=== PATIENT | female | born 1970 | race Caucasian/White ===

== ENCOUNTER 2022-07-17 00:25 | Emergency (ER) | payer BC, OTHER ==
[2022-07-17 00:33] VITALS: RESP 18; TEMP 98
[2022-07-17] MEDS ORDERED: MORPHINE SULFATE 4 MG/ML SYRINGE IV STA (00:47)
[2022-07-17] MEDS ORDERED: KETOROLAC 15 MG/ML 1 ML VIAL IVP STA (00:47)
[2022-07-17] MEDS ORDERED: ONDANSETRON 4 MG/2 ML VIAL IVP STA (00:47)
[2022-07-17] MEDS ORDERED: SODIUM CHLORIDE 0.9% 1,000 ML IV STA (00:47)
--- NOTE | 2022-07-17 00:52 | ED ---
Abdominal Pain HPI - General Chief Complaint: Abdominal Pain Stated Complaint: Abd Pain Time Seen by Provider: 07/17/22 00:40 Source: patient, RN notes reviewed Mode of arrival: ambulatory Limitations: no limitations - History of Present Illness Initial Comments: This is a pleasant 51-year-old female presents with sudden onset left flank pain which started about 2 hours ago. Patient describing a sharp, waxing and waning type pain mostly in the left pelvic area. No hematuria. No fever or chills. Patient has no back pain currently. Patient did have one episode of vomiting prior to arrival. No headache, no fever or chills, no changes in vision or hearing, no sore throat or difficulty with speech, no neck pain, no chest pain or shortness of breath, no changes in urination or bowel movements, no numbness or tingling, no extremity pain, no skin rashes or lesions. Past medical, surgical, social, and family history reviewed. MD Complaint: flank pain - Related Data Previous Rx's Medication Instructions Recorded Naproxen [Naprosyn] 375 mg PO Q12HR PRN #20 tablet 07/17/22 Allergies Allergy/AdvReac Type Severity Reaction Status Date / Time No Known Allergies Allergy Verified 07/17/22 00:33 Review of Systems ROS Statement: Those systems with pertinent positive or pertinent negative responses have been documented in the HPI. ROS Other: All systems not noted in ROS Statement are negative. Past Medical History Past Medical History: No Reported History History of Any Multi-Drug Resistant Organisms: None Reported Past Surgical History: No Surgical Hx Reported Past Psychological History: No Psychological Hx Reported Smoking Status: Vaper Past Alcohol Use History: Rare Past Drug Use History: None Reported General Exam Limitations: no limitations General appearance: alert, in distress Head exam: Present: atraumatic, normocephalic, normal inspection Eye exam: Present: normal appearance, PERRL, EOMI. Absent: scleral icterus, conjunctival injection, periorbital swelling ENT exam: Present: normal exam, mucous membranes moist Neck exam: Present: normal inspection. Absent: tenderness, meningismus, l ymphadenopathy Respiratory exam: Present: normal lung sounds bilaterally. Absent: respiratory distress, wheezes, rales, rhonchi, stridor Cardiovascular Exam: Present: regular rate, normal rhythm, normal heart sounds. Absent: systolic murmur, diastolic murmur, rubs, gallop, clicks GI/Abdominal exam: Present: soft, normal bowel sounds. Absent: distended, tenderness, guarding, rebound, rigid Extremities exam: Present: normal inspection, full ROM, normal capillary refill. Absent: tenderness, pedal edema, joint swelling, calf tenderness Back exam: Present: normal inspection, full ROM, CVA tenderness (L) Neurological exam: Present: alert, oriented X3, CN II-XII intact Psychiatric exam: Present: normal affect, normal mood Skin exam: Present: warm, dry, intact, normal color. Absent: rash Course Vital Signs 07/17/22 00:30 Temperature 98 F Pulse Rate 81 Respiratory 18 Rate Blood Pressure 139/68 O2 Sat by Pulse 98 Oximetry - Reevaluation(s) Reevaluation #1: 07/17/22 03:06 Patient reevaluated prior to discharge and is much improved after treatment. Patient states that she feels "1000 times better." Patient feels well enough to be discharged. Discussed all findings with the patient. Medical Decision Making - Medical Decision Making Differential diagnosis: Ureterolithiasis, less likelydiverticulitis, urinary tract infection, aortic pathology very unlikely. Patient is hemodynamically stable. Patient symptomology most of its renal colic. General laboratory workup to include noncontrast computed tomography scan. Patient had no diagnostic evidence to explain her pain. Patient present with sudden onset of left pelvic pain. Does not appear to be consistent with vascular etiology. Workup was essentially negative with unremarkable CBC, CMP, urinalysis, and computed tomography scan. This raises suspicion of non-ra diopaque renal stone, possible renal colic with passed stone, possible ovarian pathology. Patient postmenopausal. Does not appear to be consistent with infectious etiology. The case was discussed in detail with ED attending physician. Presentation, findings, treatment plan discussed in detail. Supervising physician Dr. Bo - Lab Data Result diagrams: 07/17/22 00:53 07/17/22 00:53 Lab Results 07/17/22 07/17/22 07/17/22 Range/Units 00:53 00:53 02:01 WBC 8.2 (3.8-10.6) k/uL RBC 4.11 (3.80-5.40) m/uL Hgb 12.5 (11.4-16.0) gm/dL Hct 35.9 (34.0-46.0) % MCV 87.2 (80.0-100.0) fL MCH 30.5 (25.0-35.0) pg MCHC 34.9 (31.0-37.0) g/dL RDW 12.9 (11.5-15.5) % Plt Count 206 (150-450) k/uL MPV 8.0 Neutrophils % 63 % Lymphocytes % 27 % Monocytes % 6 % Eosinophils % 1 % Basophils % 0 % Neutrophils # 5.1 (1.3-7.7) k/uL Lymphocytes # 2.2 (1.0-4.8) k/uL Monocytes # 0.5 (0-1.0) k/uL Eosinophils # 0.1 (0-0.7) k/uL Basophils # 0.0 (0-0.2) k/uL Sodium 138 (137-145) mmol/L Potassium 4.3 (3.5-5.1) mmol/L Chloride 106 (98-107) mmol/L Carbon Dioxide 27 (22-30) mmol/L Anion Gap 5 mmol/L BUN 20 H (7-17) mg/dL Creatinine 0.62 (0.52-1.04) mg/dL Est GFR (CKD-EPI)AfAm >90 (>60 ml/min/1.73 sqM) Est GFR (CKD-EPI)NonAf >90 (>60 ml/min/1.73 sqM) Glucose 147 H (74-99) mg/dL Calcium 9.1 (8.4-10.2) mg/dL Total Bilirubin 0.4 (0.2-1.3) mg/dL AST 27 (14-36) U/L ALT 22 (4-34) U/L Alkaline Phosphatase 74 (38-126) U/L Total Protein 7.8 (6.3-8.2) g/dL Albumin 4.5 (3.5-5.0) g/dL Urine Color Yellow Urine Appearance Clear (Clear) Urine pH 5.5 (5.0-8.0) Ur Specific [place] 1.025 (1.001-1.035) Urine Protein Negative (Negative) Urine Glucose (UA) Negative (Negative) Urine Ketones Negative (Negative) Urine Blood Negative (Negative) Urine Nitrite Negative (Negative) Urine Bilirubin Negative (Negative) Urine Urobilinogen <2.0 (<2.0) mg/dL Ur Leukocyte Esterase Negative (Negative) - Radiology Data Radiology results: report reviewed, image reviewed My independent interpretation of the noncontrast computed tomography scan of abdomen and pelvis reveals no evidence of acute pathology as read by me. I did review the radiology report. There is no evidence of renal stone or obstruction. Radiologist does make some mention of minimalist fat stranding around the small bowel the left paracolic region but specifically says no evidence of significant diverticular disease. Disposition Clinical Impression: Pelvic pain Disposition: HOME SELF-CARE Condition: Good Instructions (If sedation given, give patient instructions): Pelvic Pain in Women (ED) Additional Instructions: Follow-up with your regular physician as directed. Return to the ER immediately if any symptoms worsen, new symptoms arise, or any other problems develop. Prescriptions: Naproxen [Naprosyn] 375 mg PO Q12HR PRN #20 tablet PRN Reason: Pain Is patient prescribed a controlled substance at d/c from ED?: No Referrals: Geovanny Redmond MD [Primary Care Provider] - 1-2 days Time of Disposition: 03:01
[2022-07-17 01:21] LABS: Basophils % (A) 0 %; Eosinophils # (A) 0.1 k/uL (0-0.7); Eosinophils % (A) 1 %; HCT 35.9 % (34.0-46.0); HGB 12.5 gm/dL (11.4-16.0); Lymphocytes # (A) 2.2 k/uL (1.0-4.8); Lymphocytes % (A) 27 %; MCH 30.5 pg (25.0-35.0); MCHC 34.9 g/dL (31.0-37.0); MCV 87.2 fL (80.0-100.0); Monocytes # (A) 0.5 k/uL (0-1.0); Monocytes % (A) 6 %; Neutrophils # (A) 5.1 k/uL (1.3-7.7); Neutrophils % (A) 63 %; Platelet Count 206 k/uL (150-450); RBC 4.11 m/uL (3.80-5.40); RDW 12.9 % (11.5-15.5); WBC 8.2 k/uL (3.8-10.6)
[2022-07-17 01:32] LABS: ALT 22 U/L (4-34); AST 27 U/L (14-36); African American GFR (CKD) >90 (>60 ml/min/1.73 sqM); Albumin 4.5 g/dL (3.5-5.0); Alkaline Phosphatase 74 U/L (38-126); Anion Gap 5 mmol/L; Blood Urea Nitrogen 20 mg/dL (7-17); Calcium 9.1 mg/dL (8.4-10.2); Carbon Dioxide 27 mmol/L (22-30); Chloride 106 mmol/L (98-107); Glucose 147 mg/dL (74-99); Non-African American GFR(CKD) >90 (>60 ml/min/1.73 sqM); Potassium 4.3 mmol/L (3.5-5.1); Sodium 138 mmol/L (137-145); Total Bilirubin 0.4 mg/dL (0.2-1.3); Total Protein 7.8 g/dL (6.3-8.2)
--- NOTE | 2022-07-17 01:57 | CT ---
EXAMINATION TYPE: CT abdomen pelvis wo con DATE OF EXAM: 07/17/2022 COMPARISON: 02/09/2013 HISTORY: Left flank pain CT DLP: 1119.4 mGycm Automated exposure control for dose reduction was used. Images obtained from the diaphragm to the floor the pelvis with no contrast. The lung bases are clear. No pleural effusion. Heart size is normal. No pericardial effusion. Liver spleen and stomach pancreas appear intact. There are multiple gallstones. The bile ducts are no t dilated. No pancreatic mass. There is no adrenal mass. Kidneys have normal size. No hydronephrosis. Ureters are not dilated. No re troperitoneal adenopathy. Appendix is posterior and appears normal. There is no mesenteric edema. No evidence of ascites. No free air. There are some mildly distended loops of fluid-filled small bowel. Small bowel measures up to 2.8 cm. The bladder distends smoothly. No inguinal hernia. No free fluid in the pelvis. No evidence of a pelv ic mass. There is some minimal fat stranding around the small bowel in the left paracolic region. No evidence of a significant diverticular disease. The lumbar vertebrae have normal alignment. No compression fracture. There is narrowing at the L4-5 d isc space with spurring. No focal bone destruction. The bony pelvis is intact. The hip joints are int act. Sacroiliac joints are intact. IMPRESSION: No evidence of renal stone or obstruction. Multiple fluid-filled distended small bowel loops could relate to small bowel ileus. Partial safe and vault mechanic al obstruction not excluded. No transition point seen. Minimal fat stranding in the left lower quadrant adjacent to some small bowel that could be an inflam matory reaction. The dilated small bowel appears new compared to the old exam.
[2022-07-17 02:21] LABS: Appearance,Urine Clear (Clear); Bilirubin,Urine Negative (Negative); Blood,Urine Negative (Negative); Color,Urine Yellow; Glucose,Urine (UA) Negative (Negative); Ketones,Urine Negative (Negative); Leukocyte Esterase,Urine Negative (Negative); Nitrite,Urine Negative (Negative); PH, Urine 5.5 (5.0-8.0); Protein,Urine Negative (Negative); Specific Gravity,Urine 1.025 (1.001-1.035); Urobilinogen,Urine <2.0 mg/dL (<2.0)
[2022-07-17] MEDS ORDERED: ACET/COD 300 MG/30 MG STARTER PACK 6 TAB BTL PO STA (03:00)
[2022-07-17] MEDS ORDERED: ONDANSETRON 4 MG ODT STARTER PACK 2 TAB BTL PO STA (03:00)
[2022-07-17 03:13] VITALS: BP 124/76; PULSE 72
== END 2022-07-17 03:13 | disposition home or self-care (01) ==
LOC: EC 00:25
DX: R10.2 Pelvic and perineal pain (principal); F17.290 Nicotine dependence, other tobacco product, uncomplicated
CPT/HCPCS: 36415; 80053; 85025; 81003; 74176; 99284; 96374; 96361 ×2; J1885; S0119

== ENCOUNTER 2022-07-17 08:41 | Inpatient (IN) | payer BC, OTHER ==
[2022-07-17] MEDS ORDERED: MORPHINE SULFATE 2 MG/ML SYRINGE IVP STA (09:42)
[2022-07-17] MEDS ORDERED: KETOROLAC 15 MG/ML 1 ML VIAL IVP STA (09:42)
[2022-07-17] MEDS ORDERED: SODIUM CHLORIDE 0.9% 1,000 ML IV STA (09:56)
[2022-07-17] MEDS ORDERED: ONDANSETRON 4 MG/2 ML VIAL IVP STA (09:57)
[2022-07-17] MEDS ORDERED: ACETAMINOPHEN TAB 325 MG TAB PO PRN (09:58)
[2022-07-17] MEDS ORDERED: IBUPROFEN 400 MG TAB PO PRN (09:58)
[2022-07-17] MEDS ORDERED: NALOXONE 0.4 MG/ML 1 ML VIAL IV PRN (09:58)
--- NOTE | 2022-07-17 09:58 | ED ---
Abdominal Pain HPI - General Chief Complaint: Abdominal Pain Stated Complaint: abd pain-revisit Time Seen by Provider: 07/17/22 09:38 Source: patient, family, RN notes reviewed Mode of arrival: ambulatory Limitations: no limitations - History of Present Illness Initial Comments: This is a 51-year-old female who presents to the emergency department for ab dominal pain. Patient was evaluated here earlier today for similar symptoms and found to have a small bowel ileus. She was discharged after having significant improvement in symptoms following Zofran and Toradol. States that after she got home, she tried taking the Zofran and naproxen with no relief. She subsequently returned to the emergency department for further management. States that the pain has been moving in her abdomen since yesterday. It was initially in the lower abdomen and has now started to move to the mid abdomen around her bellybutton. Denies any fevers, chills, sore throat, cough, dyspnea, chest pain, palpitations, diarrhea, back pain, or headaches. MD Complaint: abdominal pain Location: periumbilical Associated Symptoms: nausea, vomiting - Related Data Previous Rx's Medication Instructions Recorded Naproxen [Naprosyn] 375 mg PO Q12HR PRN #20 tablet 07/17/22 Allergies Allergy/AdvReac Type Severity Reaction Status Date / Time No Known Allergies Allergy Verified 07/17/22 00:33 Review of Systems ROS Statement: Those systems with pertinent positive or pertinent negative responses have been documented in the HPI. ROS Other: All systems not noted in ROS Statement are negative. Past Medical History Past Medical History: No Reported History History of Any Multi-Drug Resistant Organisms: None Reported Past Surgical History: No Surgical Hx Reported Past Psychological History: No Psychological Hx Reported Smoking Status: Vaper Past Alcohol Use History: Rare Past Drug Use History: None Reported General Exam Limitations: no limitations General appearance: alert, in distress Head exam: Present: atraumatic, normocephalic, normal inspection Respiratory exam: Present: normal lung sounds bilaterally. Absent: respiratory distress, wheezes, rales, rhonchi, stridor Cardiovascular Exam: Present: regular rate, normal rhythm, normal heart sounds. Absent: systolic murmur, diastolic murmur, rubs, gallop, clicks GI/Abdominal exam: Present: soft, tenderness (Diffuse), hypoactive bowel sounds. Absent: distended Neurological exam: Present: alert, oriented X3, CN II-XII intact Psychiatric exam: Present: normal affect, normal mood Skin exam: Present: warm, dry, intact, normal color. Absent: rash Course Vital Signs 07/17/22 08:46 Temperature 97.8 F Pulse Rate 84 Respiratory 20 Rate Blood Pressure 149/83 O2 Sat by Pulse 99 Oximetry Medical Decision Making - Medical Decision Making This is a 51-year-old female who presents to the emergency department with abdominal pain. Lab work from earlier today was reviewed and found to be nonactionable. Will not repeat lab work at this time, as it was just obtained several hours ago. I received a phone call from Dr. Redmond's office while in the room with the patient, and the office requested the patient be admitted for the small bowel ileus. This was discussed with the patient, who is agreeable to admission. Patient was given IV fluids, Zofran, and Toradol. She request to avoid any stronger pain medication at this time. Patient admitted to medicine for the small bowel ileus and will be kept NPO for the meantime. Return precautions reviewed in depth, the patient is instructed to return to the emergency department with any new, worsening, or concerning symptoms. Patient verbalized understanding. This case was discussed in detail with the attending ED physician. Presentation, findings, and treatment plan discussed in detail as well. - Radiology Data Radiology results: report reviewed, image reviewed Disposition Clinical Impression: Paralytic ileus of small intestine Disposition: ADMITTED IP TO THIS [facility] Referrals: Geovanny Redmond MD [Primary Care Provider] - 1-2 days
[2022-07-17] MEDS ORDERED: MORPHINE SULFATE 2 MG/ML SYRINGE IVP PRN (10:00)
[2022-07-17] MEDS: PANTOPRAZOLE 40 MG/10 ML VIAL IV SCH (10:18)
[2022-07-17] MEDS: KETOROLAC 15 MG/ML 1 ML VIAL IVP PRN (17:37)
[2022-07-18] MEDS ORDERED: SODIUM CHLORIDE 0.9% 1,000 ML IV SCH (00:15)
[2022-07-18 06:47] LABS: Basophils % (A) 0 %; Eosinophils # (A) 0.1 k/uL (0-0.7); Eosinophils % (A) 1 %; HCT 36.5 % (34.0-46.0); HGB 12.2 gm/dL (11.4-16.0); Lymphocytes # (A) 1.7 k/uL (1.0-4.8); Lymphocytes % (A) 19 %; MCH 29.8 pg (25.0-35.0); MCHC 33.5 g/dL (31.0-37.0); MCV 88.9 fL (80.0-100.0); Mean Platelet Volume 8.4; Monocytes # (A) 0.4 k/uL (0-1.0); Monocytes % (A) 4 %; Neutrophils # (A) 6.8 k/uL (1.3-7.7); Neutrophils % (A) 75 %; Platelet Count 206 k/uL (150-450); RBC 4.11 m/uL (3.80-5.40); RDW 13.4 % (11.5-15.5); WBC 9.1 k/uL (3.8-10.6)
[2022-07-18 07:12] LABS: ALT 17 U/L (4-34); AST 21 U/L (14-36); African American GFR (CKD) >90 (>60 ml/min/1.73 sqM); Albumin 3.6 g/dL (3.5-5.0); Albumin/Globulin Ratio 1.3; Alkaline Phosphatase 64 U/L (38-126); Anion Gap 4 mmol/L; Blood Urea Nitrogen 17 mg/dL (7-17); Calcium 8.4 mg/dL (8.4-10.2); Carbon Dioxide 26 mmol/L (22-30); Chloride 108 mmol/L (98-107); Globulin 2.8 g/dL; Glucose 106 mg/dL (74-99); Magnesium 1.8 mg/dL (1.6-2.3); Non-African American GFR(CKD) >90 (>60 ml/min/1.73 sqM); Potassium 4.1 mmol/L (3.5-5.1); Sodium 138 mmol/L (137-145); Total Bilirubin 0.8 mg/dL (0.2-1.3); Total Protein 6.4 g/dL (6.3-8.2)
[2022-07-18] MEDS: PANTOPRAZOLE 40 MG/10 ML VIAL IV SCH (08:58)
[2022-07-18] MEDS: SODIUM CHLORIDE 0.9% 1,000 ML IV SCH ×3 (09:46→21:34)
[2022-07-18] MEDS: ONDANSETRON 4 MG/2 ML VIAL IVP PRN ×2 (12:21→18:53)
[2022-07-18] MEDS: KETOROLAC 15 MG/ML 1 ML VIAL IVP PRN ×2 (13:27→20:58)
--- NOTE | 2022-07-18 13:35 | HP ---
HISTORY AND PHYSICAL HISTORY OF PRESENT ILLNESS: This 51-year-old white female came to the hospital with bowel obstruction. She was here 2 days in a row. She had progressive vomiting last night. CAT scan showed possible bowel obstruction versus ileus. We are going to try on clear liquid diet tonight and see how she does, see if she can tolerate it and advance diet as tolerated. Possibly viral induced, although she has not been sick. She has noticed a great increase in her diet and gained 10 pounds recently after following her diet for many months. She has no history of abdominal surgeries. REVIEW OF SYSTEMS: A 14-point review of systems otherwise is negative except for progressive vomiting and dehydration. PAST MEDICAL HISTORY: Negative. PHYSICAL EXAMINATION: VITAL SIGNS: BMI is over 40. CARDIOVASCULAR: S1, S2. LUNGS: Clear. GI: Soft, nontender. EXTREMITIES: No edema. PSYCH: Fair mood and affect. Cranial nerves are intact on psych eval. ASSESSMENT AND PLAN: Possible bowel obstruction versus ileus, dehydration, prerenal azotemia. Rehydrate her, advance diet. If she does not tolerate this, we will re-CAT scan her belly, get a surgical consult. Prognosis guarded. MMODL / IJN: [id number] /
--- NOTE | 2022-07-18 14:35 | PN ---
PROGRESS NOTE SUBJECTIVE: A 51-year-old white female came with ileus versus small bowel obstruction with progressive nausea and vomiting. We gave her fluids overnight and 100 mL an hour of normal saline. She tolerated clear liquid diet. We are going to do a CAT scan of her abdomen and belly today and surgical consult and advance her diet more. She continues to not vomit. CAT scan shows improvement. OBJECTIVE: GENERAL: She is pleasant white female. VITAL SIGNS: Reviewed. CARDIOVASCULAR: S1, S2. LUNGS: Clear. GI: Soft, increased bowel sounds. EXTREMITIES: 2+ edema. ASSESSMENT: Ileus versus small bowel obstruction. No history of abdominal surgery, probably viral mediated. Check CAT scan. Advance diet if CAT scan is good. Possible discharge to home later on if she improved without vomiting. MMODL / IJN: [id number] /
--- NOTE | 2022-07-18 14:42 | CT ---
EXAMINATION TYPE: CT abdomen pelvis w con CT DLP: 1814.9 mGycm, Automated exposure control for dose reduction was used. DATE OF EXAM: 07/18/2022 2:29 PM COMPARISON: 07/17/2022 CLINICAL INDICATION:Female, 51 years old with history of ileus vs bowel obstruction; pain TECHNIQUE: Axial CT of the abdomen and pelvis. Sagittal and coronal reformats were created on a [employer] workstation. Contrast used:100 mL of Isovue 300 with IV Contrast, Oral contrast used: without Oral Contrast FINDINGS: LOWER CHEST: Unremarkable ABDOMEN LIVER: Unremarkable GALLBLADDER AND BILE DUCTS: Unremarkable. PANCREAS: Unremarkable. SPLEEN: Unremarkable. ADRENAL GLANDS: Unremarkable. KIDNEYS AND URETERS: No evidence of hydronephrosis or renal calculus. The ureters are unremarkable. PELVIS BLADDER: Unremarkable REPRODUCTIVE: Unremarkable. ABDOMEN & PELVIS STOMACH AND BOWEL: Dilated loops of small bowel have increased in size on today's exam but only affec ting the proximal small bowel with relative sparing of the terminal ileum dilation up to 3.9 cm. This is felt to be secondary to an internal hernia best appreciated on series 202 image 55. There is a ne ck of the bowel best appreciated on the same series which includes a short segment of bowel with a C- shaped. There is mild bilateral wall thickening up to 5 mm. The colon is relatively nondistended. PERITONEUM: No evidence of pneumoperitoneum. Small amount of fluid within the abdomen. VASCULATURE: No evidence of aortic aneurysm. Scattered atherosclerosis of the arterial vasculature. MUSCULOSKELETAL: No acute osseous abnormalities LYMPH NODES: No gross evidence for lymphadenopathy. SOFT TISSUE/ABDOMINAL WALL: Fat-containing umbilical hernia. IMPRESSION: Findings suspicious for internal herniation resulting in small bowel obstruction. The herniated bowel in the left lower quadrant does have a neck and C shape with wall thickening concerning for closed l oop obstruction. A [place] critical message alert has been initiated for Geovanny Redmond MD via the [employer] Critical Results System on 07/18/2022 2:37 PM. This message alert has been sent to Geovanny Redmond MD via the preferences provided by the clinician for the receipt of Radiology Critical Findings. FullContact e ID [id number].
--- NOTE | 2022-07-18 15:56 | P.GSCN ---
History of Present Illness Consult date: 07/18/22 History of present illness: CHIEF COMPLAINT: Abdominal HISTORY OF PRESENT ILLNESS: This is a 51-year-old female presented to hospital with complaints of suprapubic pain and left lower abdomen that has now moved up to above the umbilicus. And pain does radiate to the back. Patient reports that the pain comes in waves. Describes it as a cramping sensation. She repo rts that the pain can be very severe. Patient had projectile vomiting yesterday. Patient initially came into the emergency room yesterday for possible ileus and was discharged home with Zofran and Toradol. Patient had been feeling better. But then later had returned back to the ER due to the sev ere pain. Computed tomography scan with IV contrast shows findings suspicious of the internal herniation resulting in small bowel obstruction. The herniated bowel is in the left lower quadrant does have a neck and C shape with wall thickening concerning of closed loop obstruction. Patient did report having a small bowel movement today and has been having flatus. Denies any difficulty urinating. Denies any prior abdominal surgeries. Denies any previous colonoscopy. PAST MEDICAL HISTORY: See below PAST SURGICAL HISTORY: See below MEDICATIONS: See below ALLERGIES: See below SOCIAL HISTORY: No illicit drug use. REVIEW OF SYSTEMS: CONSTITUTIONAL: Denies fever or chills. HEENT: Denies blurred vision, vision changes, or eye pain. Denies hemoptysis CARDIOVASCULAR: Denies chest pain or pressure. RESPIRATORY: No shortness of breath. GASTROINTESTINAL: See HPI for pertinent findings HEMATOLOGIC: Denies bleeding disorders. GENITOURINARY: Denies any blood in urine or increased urinary frequency. SKIN: Denies pruitis. Denies rash. PHYSICAL EXAM: VITAL SIGNS: Reviewed GENERAL: Well-developed in no acute distress. HEENT: No sclera icterus. Extraocular movements grossly intact. Moist buccal mucosa. Head is atraumatic, normocephalic. No nasal drainage. ABDOMEN: Soft. Mildly distended. Tenderness with palpation of the mid abdomen just above the umbilicus. Firmness noted about the umbilicus NEUROLOGIC: Alert and oriented. Cranial nerves II through XII grossly intact. LABORATORY DATA: WBC is 9.1 hgb 12.2 platelets 206 Sodium is 138 potassium 4.1 creatinine 0.68 IMAGING: Computed tomography scan with IV contrast shows findings suspicious of the internal herniation resulting in small bowel obstruction. The herniated bowel is in the left lower quadrant does have a neck and C shape with wall thickening concerning of closed loop obstruction. ASSESSMENT: 1. Internal herniation causing small bowel obstruction. Possible closed loop obstruction PLAN: -Patient scheduled for exploratory laparotomy with lysis of adhesions today with Dr. ghosh -Keep patient nothing by mouth -Continue IV fluids -Continue pain medication as needed -Continue antiemetics Thank you for this consultation Physician Log Sorting Supervisor note has been reviewed by physician. Signing provider agrees with the documented findings, assessment, and plan of care. Past Medical History Past Medical History: No Reported History History of Any Multi-Drug Resistant Organisms: None Reported Past Surgical History: No Surgical Hx Reported Past Anesthesia/Blood Transfusion Reactions: No Reported Reaction Past Psychological History: No Psychological Hx Reported Smoking Status: Vaper Past Alcohol Use History: Rare Past Drug Use History: None Reported - Past Family History Father Family Medical History: Cancer Medications and Allergies Home Medications Medication Instructions Recorded Confirmed Type No Known Home Medications 07/17/22 07/17/22 History Allergies Allergy/AdvReac Type Severity Reaction Status Date / Time No Known Allergies Allergy Verified 07/17/22 10:53 Surgical - Exam Vital Signs Temp Pulse Resp BP Pulse Ox 97.8 F 84 20 149/83 99 07/17/22 08:46 07/17/22 08:46 07/17/22 08:46 07/17/22 08:46 07/17/22 08:46 Results - Labs 07/18/22 05:37 07/18/22 05:37 Abnormal Lab Results - Last 24 Hours (Table) 07/18/22 Range/Units 05:37 Chloride 108 H (98-107) mmol/L Glucose 106 H (74-99) mg/dL Diabetes panel 07/18/22 Range/Units 05:37 Sodium 138 (137-145) mmol/L Potassium 4.1 (3.5-5.1) mmol/L Chloride 108 H (98-107) mmol/L Carbon Dioxide 26 (22-30) mmol/L BUN 17 (7-17) mg/dL Creatinine 0.68 (0.52-1.04) mg/dL Glucose 106 H (74-99) mg/dL Calcium 8.4 (8.4-10.2) mg/dL AST 21 (14-36) U/L ALT 17 (4-34) U/L Alkaline Phosphatase 64 (38-126) U/L Total Protein 6.4 (6.3-8.2) g/dL Albumin 3.6 (3.5-5.0) g/dL Calcium panel 07/18/22 Range/Units 05:37 Calcium 8.4 (8.4-10.2) mg/dL Albumin 3.6 (3.5-5.0) g/dL Pituitary panel 07/18/22 Range/Units 05:37 Sodium 138 (137-145) mmol/L Potassium 4.1 (3.5-5.1) mmol/L Chloride 108 H (98-107) mmol/L Carbon Dioxide 26 (22-30) mmol/L BUN 17 (7-17) mg/dL Creatinine 0.68 (0.52-1.04) mg/dL Glucose 106 H (74-99) mg/dL Calcium 8.4 (8.4-10.2) mg/dL Adrenal panel 07/18/22 Range/Units 05:37 Sodium 138 (137-145) mmol/L Potassium 4.1 (3.5-5.1) mmol/L Chloride 108 H (98-107) mmol/L Carbon Dioxide 26 (22-30) mmol/L BUN 17 (7-17) mg/dL Creatinine 0.68 (0.52-1.04) mg/dL Glucose 106 H (74-99) mg/dL Calcium 8.4 (8.4-10.2) mg/dL Total Bilirubin 0.8 (0.2-1.3) mg/dL AST 21 (14-36) U/L ALT 17 (4-34) U/L Alkaline Phosphatase 64 (38-126) U/L Total Protein 6.4 (6.3-8.2) g/dL Albumin 3.6 (3.5-5.0) g/dL
[2022-07-18 16:30] LABS: Appearance,Urine Clear (Clear); Bilirubin,Urine Negative (Negative); Blood,Urine Negative (Negative); Color,Urine Yellow; Glucose,Urine (UA) Negative (Negative); Ketones,Urine Trace (Negative); Leukocyte Esterase,Urine Trace (Negative); Mucus,Urine Moderate /hpf; Nitrite,Urine Negative (Negative); PH, Urine 5.5 (5.0-8.0); Protein,Urine Trace (Negative); RBC,Urine 2 /hpf (0-5); Squamous Epithelial Cell,Urine 2 /hpf (0-4); Urobilinogen,Urine <2.0 mg/dL (<2.0); WBC,Urine 1 /hpf (0-5)
[2022-07-18 16:37] LABS: Specific Gravity,Urine >1.050 (1.001-1.035)
[2022-07-18] MEDS ORDERED: DEXAMETHASONE SOD PHOS (MDV) 100 MG/10 ML VIAL ONE (20:00)
[2022-07-18] MEDS ORDERED: MIDAZOLAM 2 MG/2 ML VIAL ONE (20:00)
[2022-07-18] MEDS ORDERED: fentaNYL (PF) 50 MCG/ML 2 ML AMP ONE (20:00)
[2022-07-18] MEDS ORDERED: SUCCINYLCHOLINE CHLORIDE 200 MG/10 ML VIAL IV ONE (20:00)
[2022-07-18] MEDS ORDERED: LIDOCAINE 2% INJ 20 MG/ML (2 ML VIAL) ONE (20:00)
[2022-07-18] MEDS ORDERED: PROPOFOL 10 MG/ML 20 ML VIAL IV ONE (20:00)
[2022-07-18] MEDS ORDERED: HEPARIN SODIUM,PORCINE 5,000 UNIT/ML 1 ML VIAL ONE (20:00)
[2022-07-18] MEDS ORDERED: NEOSTIGMINE 1 MG/ML 10 ML VIAL ONE (20:00)
[2022-07-18] MEDS ORDERED: GLYCOPYRROLATE 0.2 MG/ML 2 ML VIAL ONE (20:00)
[2022-07-18] MEDS ORDERED: ROCURONIUM 10 MG/ML (5 ML VIAL) IV ONE (20:00)
[2022-07-18] MEDS ORDERED: KETOROLAC 15 MG/ML 1 ML VIAL ONE (20:00)
[2022-07-18] MEDS ORDERED: SODIUM CHLORIDE 0.9% 50 ML with ceFAZolin 2,000 MG IV ONE ×2 (20:04)
[2022-07-18] MEDS ORDERED: IV FLUID CONTINUATION 1,000 ML IV ONE (20:04)
--- NOTE | 2022-07-18 20:49 | P.OP ---
Date of Procedure: 07/18/22 Preoperative Diagnosis: High-grade small bowel obstruction Postoperative Diagnosis: High-grade small bowel obstruction secondary to left inguinal hernia causing a closed loop obstruction Incarcerated ventral hernia with incarcerated omentum Procedure(s) Performed: Exploratory laparotomy Lysis of adhesions Reduction of incarcerated left inguinal hernia Repair of left internal hernia with mesh Repair of ventral hernia Partial omentectomy Anesthesia: ONOFRE Surgeon: Juan Vazquez Estimated Blood Loss (ml): 20 Pathology: other (Omentum) Condition: stable Disposition: PACU Description of Procedure: The patient's placed on the operative table in supine position. She received general endotracheal tube anesthesia. Her abdomen was prepped and draped in sterile fashion. The skin was incised in the midline. Using left cautery the subcutaneous tissue divided. The fascia was then opened. There was some hemorrhagic ascitic fluid seen in the pleural cavity. This was aspirated. The small bowel was grossly dilated. Small bowel was then run and there was a closed loop obstruction secondary to a portion of the bowel incarcerated within a left internal hernia of the bowel was reduced. The bowel appeared viable. This was the transition point for the high-grade small bowel structure. This point the bowel was run from ligament Treitz to terminal and. No other obstruction was seen. This point the peritoneum was dissected from the midline towards the left groin. The preperitoneal space of the hernia was opened. And then using the 3-D mesh the hernia was repaired. The peritoneum was then reattached using 0 Vicryl suture. During the opening of the peritoneum there was found to be a ventral hernia with incarcerated omentum just above the umbilicus. The incarcerated omentum was dissected free with left cautery to pathology. The abdomen was irrigated there is no bleeding seen. The fascia was then closed with looped #1 PDS suture. The ventral hernia was repaired during fascial closure. Skin was closed table. Patient top she will was sent to recovery room in stable condition.
[2022-07-18] MEDS ORDERED: ONDANSETRON 4 MG/2 ML VIAL IVP PRN (20:50)
[2022-07-18] MEDS ORDERED: HYDROmorphone 0.5 MG/0.5 ML SYRINGE IVP ONE (20:58)
[2022-07-18] MEDS: HYDROmorphone 1 MG/ML 1 ML SYRINGE IVP PRN (21:43)
[2022-07-18] MEDS: METOCLOPRAMIDE 5 MG/ML 2 ML VIAL IVP PRN (21:47)
[2022-07-18] MEDS: HYDROcodone/APAP 7.5-325MG 1 EACH TAB PO PRN (22:43)
[2022-07-19] MEDS: HYDROmorphone 1 MG/ML 1 ML SYRINGE IVP PRN (01:55)
[2022-07-19] MEDS: SODIUM CHLORIDE 0.9% 1,000 ML IV SCH ×3 (02:02→16:39)
[2022-07-19] MEDS: HYDROcodone/APAP 7.5-325MG 1 EACH TAB PO PRN ×5 (04:52→23:22)
[2022-07-19] MEDS: PANTOPRAZOLE 40 MG/10 ML VIAL IV SCH (07:56)
[2022-07-19] MEDS: ENOXAPARIN 40 MG/0.4 ML SYRINGE SQ SCH (07:56)
[2022-07-19 08:53] LABS: HCT 33.9 % (34.0-46.0); HGB 11.5 gm/dL (11.4-16.0); MCH 30.7 pg (25.0-35.0); MCV 90.2 fL (80.0-100.0); Mean Platelet Volume 8.4; Platelet Count 183 k/uL (150-450); RBC 3.76 m/uL (3.80-5.40); WBC 5.3 k/uL (3.8-10.6)
[2022-07-19 09:20] LABS: African American GFR (CKD) >90 (>60 ml/min/1.73 sqM); Anion Gap 3 mmol/L; Blood Urea Nitrogen 15 mg/dL (7-17); Calcium 7.9 mg/dL (8.4-10.2); Carbon Dioxide 28 mmol/L (22-30); Chloride 108 mmol/L (98-107); Glucose 100 mg/dL (74-99); Non-African American GFR(CKD) >90 (>60 ml/min/1.73 sqM); Potassium 4.5 mmol/L (3.5-5.1); Sodium 139 mmol/L (137-145)
--- NOTE | 2022-07-19 13:56 | P.PN ---
Subjective Progress Note Date: 07/19/22 CHIEF COMPLAINT: High-grade small bowel obstruction HISTORY OF PRESENT ILLNESS: Patient is postop day #1 status post exploratory laparotomy, lysis of adhesions, reduction of incarcerated left inguinal hernia, repair of left internal hernia with mesh, repair of ventral hernia and partial omentectomy for high-grade small bowel obstruction secondary to left inguinal hernia causing a closed loop obstruction and incarcerated ventral hernia with incarcerated omentum. Patient reports her pain is controlled. She denies any nausea or vomiting. No bowel activity. Afebrile. WBC is 5.3 hemoglobin 11.5 plt 183 Na 139 potassium 4.5 creatinine 0.61 PHYSICAL EXAM: VITAL SIGNS: Reviewed. GENERAL: Well-developed in no acute distress. HEENT: No sclera icterus. Extraocular movements grossly intact. Moist buccal mucosa. Head is atraumatic, normocephalic. ABDOMEN: Soft. Nondistended. Dressing mild shadowing at the distal aspect otherwise clean dry and intact. NEUROLOGIC: Alert and oriented. Cranial nerves II through XII grossly intact. ASSESSMENT: 1. High-grade small bowel obstruction secondary to left inguinal hernia causing a closed loop obstruction and incarcerated ventral hernia with incarcerated omentum PLAN: -Continue clear liquid diet -Ordered abdominal binder -Incentive spirometer ordered -Watkins catheter to be discontinued -Surgical dressing to be changed to Optifoam Silver -Encourage patient to ambulate -Continue pain management -GI prophylaxis Protonix and DVT prophylaxis subcu Lovenox Physician Motivational Speaker note has been reviewed by physician. Signing provider agrees with the documented findings, assessment, and plan of care. Objective - Vital Signs Vital signs: Vital Signs Temp 98.7 F 07/19/22 07:33 Pulse 77 07/19/22 07:33 Resp 17 07/19/22 07:33 BP 105/66 07/19/22 07:33 Pulse Ox 96 07/19/22 07:33 FiO2 Intake & Output 07/18/22 07/19/22 07/19/22 18:59 06:59 18:59 Intake Total 1750 Output Total 208 Balance 1542 Weight 92.986 kg Intake: IV 250 Intake, IV Titration 1500 Amount Sodium Chloride 0.9% 1, 1500 000 ml @ 150 mls/hr IV . Q6H40M [facility] Rx#:[id number] Output: Urine 188 Estimated Blood Loss 20 Other: Voiding Method Toilet Indwelling Catheter Indwelling Catheter # Voids 2 # Bowel Movements 1 - Labs CBC & Chem 7: 07/19/22 08:08 07/19/22 08:08 Labs: Abnormal Lab Results - Last 24 Hours (Table) 07/18/22 07/19/22 07/19/22 Range/Units 16:00 08:08 08:08 RBC 3.76 L (3.80-5.40) m/uL Hct 33.9 L (34.0-46.0) % Chloride 108 H (98-107) mmol/L Glucose 100 H (74-99) mg/dL Calcium 7.9 L (8.4-10.2) mg/dL Ur Specific [place] >1.050 H (1.001-1.035) Urine Protein Trace H (Negative) Urine Ketones Trace H (Negative) Ur Leukocyte Esterase Trace H (Negative) Urine Mucus Moderate H (None) /hpf
[2022-07-19] MEDS: PIPERACILLIN-TAZOBACTAM 3.375 GM in SODIUM CHLORIDE 0.9% 100 ML IVPB SCH (20:40)
[2022-07-19] MEDS: METOCLOPRAMIDE 5 MG/ML 2 ML VIAL IVP PRN (23:23)
[2022-07-20] MEDS: PIPERACILLIN-TAZOBACTAM 3.375 GM in SODIUM CHLORIDE 0.9% 100 ML IVPB SCH ×3 (04:07→20:28)
[2022-07-20] MEDS: SODIUM CHLORIDE 0.9% 1,000 ML IV SCH ×4 (04:07→22:49)
[2022-07-20] MEDS: ENOXAPARIN 40 MG/0.4 ML SYRINGE SQ SCH (08:54)
[2022-07-20] MEDS: PANTOPRAZOLE 40 MG/10 ML VIAL IV SCH (08:54)
[2022-07-20] MEDS: KETOROLAC 15 MG/ML 1 ML VIAL IVP PRN (09:03)
--- NOTE | 2022-07-20 10:08 | P.PN ---
Subjective Progress Note Date: 07/20/22 Principal diagnosis: Internal hernia Patient doing well today. She passed flatus. Tolerating clears. Some nausea. She would like to try more to eat. T-max 100.3. Pain improving. Objective - Vital Signs Vital signs: Vital Signs Temp 99.8 F H 07/20/22 08:00 Pulse 89 07/20/22 08:00 Resp 17 07/20/22 08:00 BP 118/79 07/20/22 08:00 Pulse Ox 92 L 07/20/22 08:00 FiO2 Intake & Output 07/19/22 07/20/22 07/20/22 18:59 06:59 18:59 Intake Total 100 Balance 100 Intake: Oral 100 Other: Voiding Method Indwelling Catheter Toilet # Voids 3 2 - Exam Abdomen: Soft, nondistended, incision clean and dry, mild tenderness - Labs CBC & Chem 7: 07/19/22 08:08 07/19/22 08:08 Assessment and Plan (1) Paralytic ileus of small intestine Narrative/Plan: 51-year-old female doing well after recent exploratory laparotomy with lysis of adhesions and hernia repair. Advance diet to full liquids. Ambulate. Current Visit: Yes Status: Acute Code(s): K56.0 - PARALYTIC ILEUS SNOMED Code(s): 5843971493
--- NOTE | 2022-07-20 15:06 | XR ---
EXAMINATION TYPE: XR chest 2V DATE OF EXAM: 07/20/2022 2:28 PM COMPARISON: Chest radiographs from 08/01/2015 TECHNIQUE: XR chest 2V Frontal and lateral views of the chest. CLINICAL INDICATION:Female, 51 years old with history of aspiration; FINDINGS: Lungs/Pleura: There is no evidence of pleural effusion, focal consolidation, or pneumothorax. Pulmonary vascularity: Unremarkable. Heart/mediastinum: Cardiomediastinal silhouette is unremarkable. Musculoskeletal: No acute osseous pathology. IMPRESSION: 1. No definitive evidence for aspiration. 2. No acute cardiopulmonary disease/process.
[2022-07-20] MEDS: HYDROcodone/APAP 7.5-325MG 1 EACH TAB PO PRN ×2 (15:12→22:48)
--- NOTE | 2022-07-20 22:18 | PN ---
PROGRESS NOTE SUBJECTIVE: The patient is status post hernia repair x2 with a small bowel obstruction. Tolerating clear liquid diet, passed flatus. Doing well today, some nausea. T-max is 100.3, improving. Started on broad-spectrum Zosyn for antibiotic prophylaxis due to fevers and abdominal surgery. OBJECTIVE: VITAL SIGNS: Blood pressure 118/70, O2 92, pulse 89, respiratory rate 16 to 18, and temp 99. CARDIOVASCULAR: S1, S2. LUNGS: Clear. ABDOMEN: She has mild increased bowel sounds. Paralytic ileus in small intestine, status post small bowel obstruction from hernia repair. Ambulate with full liquids, home soon. MMODL / IJN: [id number] /
[2022-07-21] MEDS: PIPERACILLIN-TAZOBACTAM 3.375 GM in SODIUM CHLORIDE 0.9% 100 ML IVPB SCH ×3 (04:38→21:44)
[2022-07-21] MEDS: SODIUM CHLORIDE 0.9% 1,000 ML IV SCH ×2 (04:39→10:29)
[2022-07-21] MEDS: ENOXAPARIN 40 MG/0.4 ML SYRINGE SQ SCH (09:22)
[2022-07-21] MEDS: PANTOPRAZOLE 40 MG/10 ML VIAL IV SCH (09:22)
[2022-07-21 09:36] LABS: Basophils # (A) 0.02 X 10*3/uL (0.00-0.10); Basophils % (A) 0.4 %; Eosinophils # (A) 0.11 X 10*3/uL (0.04-0.35); Eosinophils % (A) 2.2 %; HCT 28.3 % (37.2-46.3); HGB 9.7 g/dL (12.0-15.0); Immature Grans, Automated 0.4 %; Lymphocytes # (A) 1.49 X 10*3/uL (0.90-5.00); Lymphocytes % (A) 29.2 %; MCH 30.3 pg (27.0-32.0); MCHC 34.3 g/dL (32.0-37.0); MCV 88.4 fL (80.0-97.0); Mean Platelet Volume 10.1 fL (9.5-12.2); Monocytes # (A) 0.47 X 10*3/uL (0.20-1.00); Monocytes % (A) 9.2 %; NRBC Per 100 WBC 0 /100 WBCS (0.0-0.0); Neutrophils % (A) 58.6 %; Platelet Count 173 X 10*3/uL (140-440); RDW 13.1 % (11.5-14.5); WBC 5.11 X 10*3/uL (4.50-10.00)
[2022-07-21 09:45] LABS: African American GFR (CKD) 128.1 (60.0-200.0); Blood Urea Nitrogen 6.5 mg/dL (9.0-27.0); Calcium 8.6 mg/dL (8.7-10.3); Non-African American GFR(CKD) 110.5 (60.0-200.0); Potassium 3.8 mmol/L (3.5-5.5)
[2022-07-21 09:55] LABS: Chol/HDL Ratio 2.96 Ratio; LDL Cholesterol,Calculated 59.1 mg/dL (0.0-131.0)
--- NOTE | 2022-07-21 10:06 | P.PN ---
Subjective Progress Note Date: 07/21/22 Principal diagnosis: Internal hernia Patient doing well today. She is having flatus. There is no nausea or vomiting. She has not had a stool yet. Continues to ambulate. Pain is well- controlled. Objective - Vital Signs Vital signs: Vital Signs Temp 98.2 F 07/21/22 07:49 Pulse 85 07/21/22 07:49 Resp 17 07/21/22 07:49 BP 148/81 07/21/22 07:49 Pulse Ox 96 07/21/22 07:49 FiO2 Intake & Output 07/20/22 07/21/22 07/21/22 18:59 06:59 18:59 Other: # Voids 2 4 - Exam Abdomen: Soft, nondistended, incision clean and dry, mild tenderness - Labs CBC & Chem 7: 07/21/22 06:47 07/21/22 06:47 Labs: Abnormal Lab Results - Last 24 Hours (Table) 07/21/22 07/21/22 Range/Units 06:47 06:47 RBC 3.20 L (4.10-5.20) X 10*6/uL Hgb 9.7 L (12.0-15.0) g/dL Hct 28.3 L (37.2-46.3) % Anion Gap 8.00 L (10.00-18.00) mmol/L BUN 6.5 L (9.0-27.0) mg/dL Creatinine 0.5 L (0.6-1.5) mg/dL Calcium 8.6 L (8.7-10.3) mg/dL Assessment and Plan (1) Paralytic ileus of small intestine Narrative/Plan: Patient doing well today. Will increase diet. Continue ambulation. Anticipate discharge tomorrow. Current Visit: Yes Status: Acute Code(s): K56.0 - PARALYTIC ILEUS SNOMED Code(s): 0036272166
[2022-07-21] MEDS: HYDROcodone/APAP 7.5-325MG 1 EACH TAB PO PRN (12:19)
[2022-07-21 21:04] VITALS: RESP 16
[2022-07-22] MEDS: PIPERACILLIN-TAZOBACTAM 3.375 GM in SODIUM CHLORIDE 0.9% 100 ML IVPB SCH ×2 (06:42→12:17)
[2022-07-22 08:55] VITALS: BP 121/73; PULSE 74; TEMP 98.9
[2022-07-22] MEDS: ENOXAPARIN 40 MG/0.4 ML SYRINGE SQ SCH (09:06)
[2022-07-22] MEDS: PANTOPRAZOLE 40 MG/10 ML VIAL IV SCH (09:06)
[2022-07-22] MEDS ORDERED: RX INFO: IV CONTRAST WAS GIVEN 1 EACH MISC MISCELLANE PRN (12:33)
--- NOTE | 2022-07-22 12:34 | P.DS ---
Providers Date of admission: 07/17/22 10:58 Expected date of discharge: 07/22/22 Attending physician: Geovanny Redmond Consults: 07/18/22 12:46 Consult Physician Routine Consulting Provider: Juan Vazquez Consult Reason/Comments: bowel obstruction Do you want consulting provider notified?: Yes Primary care physician: Geovanny Redmond [place] [facility] Course: Discharge diagnosis 1. High-grade small bowel obstruction secondary to left inguinal hernia causing a closed loop obstruction and incarcerated ventral hernia with incarcerated omentum status post exploratory laparotomy, lysis of adhesions, reduction of incarcerated left inguinal hernia, repair of left internal hernia with mesh, repair of ventral hernia and partial omentectomy Hospital course This is a 51-year-old female presented to hospital with complaints of suprapubic pain and left lower abdomen that has now moved up to above the umbilicus. And pain does radiate to the back. Patient had nausea and vomiting. Computed tomography scan shows findings suspicious of the internal herniation resulting in small bowel obstruction. The herniated bowel is in the left lower quadrant does have a neck and C shape with wall thickening concerning of closed loop obstruction. Patient is status post exploratory laparotomy, lysis of adhesions, reduction of incarcerated left inguinal hernia, repair of left internal hernia with mesh, repair of ventral hernia and partial omentectomy. Patient tolerated surgery well. Incision site is clean dry and intact. Her pain is controlled. She is tolerating diet. She is having bowel movements and flatus. She's afebrile. She is ambulating. She is stable for discharge. Please refer to chart for any further details. Physician Treasury Representative note has been reviewed by physician. Signing provider agrees with the documented findings, assessment, and plan of care. Patient Condition at Discharge: Stable Plan - Discharge Summary Discharge Rx Participant: No New Discharge Prescriptions: New Ibuprofen [Motrin] 600 mg PO Q8HR PRN #30 tab PRN Reason: Pain Acetaminophen Tab [Tylenol] 1,000 mg PO Q6HR PRN #30 tablet PRN Reason: Pain Discharge Medication List Acetaminophen Tab [Tylenol] 1,000 mg PO Q6HR PRN #30 tablet 07/22/22 [Rx] Ibuprofen [Motrin] 600 mg PO Q8HR PRN #30 tab 07/22/22 [Rx] Follow up Appointment(s)/Referral(s): Geovanny Redmond MD [Primary Care Provider] - 1-2 days Juan Vazquez MD [STAFF PHYSICIAN] - 1 Week Activity/Diet/Wound Care/Special Instructions: No lifting over 10 pounds Shower daily. No soaking or tub baths for 2 weeks Very light activity until you are reevaluated at your follow up appointment with your surgeon diet regular Repeat CBC in 1 week Discharge Disposition: HOME SELF-CARE
[2022-07-22 19:06] LABS: % Iron Saturation 11.11 (12.00-45.00)
--- NOTE | 2022-07-22 21:14 | PN ---
PROGRESS NOTE SUBJECTIVE: A 51-year-old white female, admitted with bowel obstruction, status post surgery. She has had a low-grade fever. We kept her on Zosyn over the weekend. Now, she is afebrile. She is saturating 98% on room air. Blood pressure 121/73. Respiratory rate 16 to 18. OBJECTIVE: CARDIOVASCULAR: S1, S2. LUNGS: Mild wheeze and rhonchi. ABDOMEN: Soft. HEMATOLOGY: Negative Homans. PLAN: Discharge home in next 24 to 48 hours if her bowel obstruction is improving. Diet is advanced. Possibly discharge home. Follow up in next day or 2. She is a smoker, 30 to 40 years. She possibly aspirated when she was vomiting on admission. Her oxygen levels ranged in the low 90s. We are going to do a CAT scan of her lungs to make sure. Please see further orders. MMODL / IJN: [id number] /
== END 2022-07-22 13:56 | disposition home or self-care (01) | DRG 350 ==
LOC: EC 08:41 → 4SSUR 10:58
PROVIDERS: ADMIT Family Medicine; ATTEND Family Medicine
PROC: 0YQ60ZZ Repair Left Inguinal Region, Open Approach (ICD-10-PCS; principal; 2022-07-18 14:00)
PROC: 0DBU0ZZ Excision of Omentum, Open Approach (ICD-10-PCS; principal; 2022-07-18 14:00)
PROC: 0WUF0JZ Supplement Abdominal Wall with Synthetic Substitute, Open Approach (ICD-10-PCS; principal; 2022-07-18 14:00)
PROC: 0WQF0ZZ Repair Abdominal Wall, Open Approach (ICD-10-PCS; principal; 2022-07-18 14:00)
DX: K40.30 Unilateral inguinal hernia, with obstruction, without gangrene, not specified as recurrent (principal); K43.7 Other and unspecified ventral hernia with gangrene; K43.6 Other and unspecified ventral hernia with obstruction, without gangrene; K56.0 Paralytic ileus; Z60.2 Problems related to living alone; Z28.311 Partially vaccinated for COVID-19; Z28.21 Immunization not carried out because of patient refusal
CPT/HCPCS: 71046; 74177; 80048; 80053; 80061; 81001; 81025; 83036; 83540; 83550; 83690; 83735; 84443; 85025; 85027; 86850; 86900; 86901; 88305; 96361; 96374; 96375; 96376; 99285

== ENCOUNTER → 2022-10-23 | Outpatient (CLI) | payer OTHER ==
--- NOTE | 2022-10-23 09:10 | US ---
EXAMINATION TYPE: US abdomen limited DATE OF EXAM: 10/23/2022 COMPARISON: NONE CLINICAL HISTORY: R10.84 ABD PAIN. Assess for hernia at location of: 1.Midline inferior to umbilicus. 2. RLQ. 3.LLQ. In area of main concern, Midline abdomen inferior to umbilicus, a peristalsing bowel containing herni a appears present. In 2nd area of concern, RLQ abdomen, no abnormalities visualized. In 3rd area of concern, LLQ abdomen, no abnormalities visualized. IMPRESSION: Findings felt to reflect hernia inferior to the umbilicus. Real-time scanning was performed by the director of neurology utilizing Valsalva and additional dynamic maneuve rs to assess for hernia. Images of the contralateral side were also acquired for direct comparison.
== END | disposition home or self-care (01) ==
LOC: RADUSWWP 08:20
PROVIDERS: ATTEND Family Medicine
DX: K43.9 Ventral hernia without obstruction or gangrene (principal)
CPT/HCPCS: 76705

== ENCOUNTER → 2022-11-14 | Outpatient (CLI) | payer OTHER ==
--- NOTE | 2022-11-15 08:00 | MM ---
Reason for Exam: Screening (asymptomatic). Baseline mammogram. Patient History: Menarche at age 7. Patient has no children. Postmenopausal. Risk Values: Michelle 5 year model risk: 1.3%. NCI Lifetime model risk: 10.3%. Prior Study Comparison: Patient's first Mammogram. Tissue Density: There are scattered fibroglandular densities. Findings: Analyzed By CAD. There is no suspicious group of microcalcifications or new suspicious mass in either breast. Overall Assessment: Negative, BI-RAD 1 Management: Screening Mammogram of both breasts in 1 year. A clinical breast exam by your physician is recommended on an annual basis and results should be correlated with mammographic findings. [facility] will attempt to contact patient to return for supplemental views and ultrasound if indicated. Electronically signed and approved by: Shabbir Brush DO
== END | disposition home or self-care (01) ==
LOC: RADMAMWWP 11:18
PROVIDERS: ATTEND Family Medicine
DX: Z12.31 Encounter for screening mammogram for malignant neoplasm of breast (principal); Z78.0 Asymptomatic menopausal state
CPT/HCPCS: 77067